=== PATIENT | male | born 1970 | race African-American/Black ===

== ENCOUNTER 2023-01-01 16:21 | Inpatient (IN) | payer MEDICAID ==
[~2023-01-01] VITALS: Ht 180.3 cm; Wt 98.0 kg
--- NOTE | 2023-01-01 18:08 | NUR ---
BIBA FOR LOWER EXTREMITY INJURY. A/O X 3, ABLE TO MAKE NEEDS KNOWN, TOLERATING WELL ON ROOM AIR.
[2023-01-01] MEDS ORDERED: VANCOMYCIN 1 GM in IV D5W 250 ML IV ONE (18:30)
--- NOTE | 2023-01-01 18:54 | NUR ---
BLOOD SAMPLES OBTAINED
--- NOTE | 2023-01-01 19:06 | NUR ---
HOLDING ANTIBIOTICS PENDING URINE SAMPLE FOR CULTURE
--- NOTE | 2023-01-01 19:10 | NUR ---
U/S TECH AT BEDSIDE
[2023-01-01 19:12] LABS: BASOPHILS # (AUTO) 0.2 K/uL (0.0-0.2); HEMATOCRIT 42 % (39-51); HEMOGLOBIN 13.9 g/dL (13.5-17.5); LYMPHOCYTES # (AUTO) 0.8 K/uL (0.8-4.8); LYMPHOCYTES % (AUTO) 4.7 % (20.0-44.0); MEAN CORPUSCULAR HGB CONC 33 g/dl (31.0-36.0); MEAN CORPUSCULAR VOLUME 88 fL (80-96); MONOCYTES # (AUTO) 0.7 K/uL (0.1-1.30); MONOCYTES % (AUTO) 3.9 % (2.0-12.0); NEUTROPHILS # (AUTO) 14.9 K/uL (1.8-8.9); NEUTROPHILS % (AUTO) 90.4 % (43.0-81.0); PLATELET COUNT (AUTO) 126 K/uL (150-450); RED BLOOD CELL COUNT(AUTO) 4.79 MIL/uL (4.5-6.0); WHITE BLOOD COUNT (AUTO) 16.6 K/uL (4.3-11.0)
[2023-01-01 19:29] LABS: ALANINE AMINOTRANSFERASE 61 U/L (12-78); ALKALINE PHOSPHATASE 70 U/L (46-116); ASPARTATE AMINOTRANSFERASE 80 U/L (15-37); CARBON DIOXIDE 29 mmol/L (21-32); CHLORIDE 98 mmol/L (98-107); CREATININE 1.5 mg/dL (0.6-1.3); GLUCOSE 95 mg/dL (74-106); POTASSIUM 3.4 mmol/L (3.5-5.1); SODIUM SERUM 134 mmol/L (136-145); TOTAL PROTEIN, SERUM 7.2 g/dL (6.4-8.2); UREA NITROGEN, BLOOD 17 mg/dL (7-18)
--- NOTE | 2023-01-01 19:43 | NUR ---
URINE CUP OFFERED; PATIENT AMBULATED TO RESTROOM
--- NOTE | 2023-01-01 19:44 | NUR ---
URINE COLLECTED AND SENT TO LAB
--- NOTE | 2023-01-01 19:51 | NUR ---
LACTIC 2.1, DR. MARIE NOTIFIED
--- NOTE | 2023-01-01 19:51 | NUR ---
[facility] PATIENT LACTIC ACID 2.1, RN MANPREET MADE AWARE
[2023-01-01 19:58] LABS: C-REACTIVE PROTEIN 38.9 mg/dL (0.0-0.9)
[2023-01-01] MEDS ORDERED: IV NS 0.9% 1,000 ML IV ONE (20:00)
--- NOTE | 2023-01-01 21:33 | NUR ---
EPIC PANEL PAGED
--- NOTE | 2023-01-01 21:41 | NUR ---
COVID SWAB COLLECTED AND SENT TO LAB
--- NOTE | 2023-01-01 23:05 | NUR ---
REPORT GIVEN TO YAN LANDERS FOR CRIS
--- NOTE | 2023-01-01 23:16 | NUR ---
PT TRANSPORT TO UNIT ON [facility] WITH EMT AT BEDSIDE. PT IS IN STABLE CONDITION FOR TRANSPORT
[2023-01-01] MEDS ORDERED: ACETAMINOPHEN 325 MG TABLET PO PRN (23:30)
[2023-01-01] MEDS ORDERED: ONDANSETRON HCL/PF 4 MG/2 ML VIAL IVP PRN (23:30)
[2023-01-01] MEDS ORDERED: VANCOMYCIN 500 MG in IV D5W 100ml IV ONE (23:30)
[2023-01-01 23:58] VITALS: BP 137/83
[2023-01-02] MEDS ORDERED: VANCOMYCIN 1 GM VIAL ONE (00:11)
[2023-01-02] MEDS: ENOXAPARIN SODIUM 40 MG/0.4 ML DISP.SYRIN SQ SCH ×2 (00:19→23:04)
--- NOTE | 2023-01-02 00:26 | NUR ---
RN NOTE PT A/O X4 ABLE TO MAKE NEEDS KNOWN. ON ROOM AIR TOLERATING WELL. NO RESPIRATORY DISTRESS REPORTED. NO USE OF ACCESSORY MUSCLES. PT NOTED WITH IV ACCESS ONT RAC 320G FLUSHING WELL. S/L. PT NOTED WITH BILATERAL LOWER EXTREMITY SWELLING AND REDNESS. NOTED WITH EDEMA ON THE LLE PITTING +2 AND NON PITTING EDEMA ON RLE. ALSO NOTED PT WITH BLE SCABS ON BOTH THIGHS. PHOTOS TAKE AND PLACE IN CHART WOUND CONSULT ORDERED. PT ORIENTED TO UNIT AND ROOM CALL LIGHT WITHIN REACH. TABLE WITHIN REACH. ALL NEEDS MET AT THIS TIME.
[2023-01-02 01:54] LABS: BILIRUBIN,DIRECT 0.3 mg/dL (0.0-0.2)
[2023-01-02 06:28] LABS: BASOPHILS % (AUTO) 0.4 % (0.0-2.0); EOSINOPHILS % (AUTO) 0.3 % (0.0-6.0); HEMATOCRIT 39 % (39-51); HEMOGLOBIN 12.5 g/dL (13.5-17.5); LYMPHOCYTES % (AUTO) 8.5 % (20.0-44.0); MEAN CORPUSCULAR HGB CONC 33 g/dl (31.0-36.0); MEAN CORPUSCULAR VOLUME 90 fL (80-96); MONOCYTES # (AUTO) 0.8 K/uL (0.1-1.30); MONOCYTES % (AUTO) 6.4 % (2.0-12.0); NEUTROPHILS # (AUTO) 10.4 K/uL (1.8-8.9); NEUTROPHILS % (AUTO) 84.4 % (43.0-81.0); PLATELET COUNT (AUTO) 113 K/uL (150-450); RED BLOOD CELL COUNT(AUTO) 4.28 MIL/uL (4.5-6.0); WHITE BLOOD COUNT (AUTO) 12.3 K/uL (4.3-11.0)
--- NOTE | 2023-01-02 06:42 | NUR ---
RN CLOSING NOTE PT A/O X4 ABLE TO MAKE NEEDS KNOWN. ON ROOM AIR TOLERATING WELL. NO RESPIRATORY DISTRESS REPORTED. NO USE OF ACCESSORY MUSCLES. PT NOTED WITH IV ACCESS ON RAC # 20G FLUSHING WELL. S/L. PT NOTED WITH BILATERAL LOWER EXTREMITY SWELLING AND REDNESS. NOTED WITH EDEMA ON THE LLE PITTING +2 AND NON PITTING EDEMA ON RLE. PT ORIENTED TO UNIT AND ROOM CALL LIGHT WITHIN REACH. TABLE WITHIN REACH. ALL NEEDS MET AT THIS TIME. WILL ENDORSE CARE TO DAY SHIFT NURSE.
[2023-01-02 06:54] LABS: CALCIUM, SERUM 8.4 mg/dL (8.5-10.1); CREATININE 1.3 mg/dL (0.6-1.3); MAGNESIUM 1.9 mg/dL (1.8-2.4); POTASSIUM 3.3 mmol/L (3.5-5.1)
[2023-01-02 08:00] VITALS: BP 120/78
[2023-01-02] MEDS ORDERED: POTASSIUM CHLORIDE 20 MEQ TAB.PRT.SR PO SCH (09:30)
--- NOTE | 2023-01-02 10:36 | NUR ---
RN OPENING NOTE I RECEIVED PT A/O X4 IN BED , ON RA, IN NO RESPIRATORY DISTRESS, NO LABORED BREATHING. PT IS ABLE TO MAKE NEEDS KNOWN. NO USE OF ACCESSORY MUSCLES. HEART AND LUNG AND ABDOMOINAL SOUNDS ARE NORMAL. IV ACCESS ON RAC # 20G FLUSHING WELL. PT NOTED WITH BILATERAL LOWER EXTREMITY SWELLING , REDNESS AND WARM LOWER LEGS. NOTED WITH + 3 EDEMA ON BLEs . SAFETY PRECAUTIONS ARE IN PLACE. CALL LIGHT WITHIN REACH. TABLE WITHIN REACH. BED LOCKED AND AT LOWEST POSITION, SIDE RAILS ARE UPX2 . i WILL PROVIDE HIGH STANDARD CARE TO PT DURING MY SHIFT AND MEET HIS NEEDS. Addendum: 01/02/23 at 1049 by WALTER CRESPO RN NOTE FOR 0730
--- NOTE | 2023-01-02 10:44 | NUR ---
WOUND CARE CONSULT: PT PRESENTS WITH VERY RED, SWOLLEN LOWER LEGS WITH CRUSTED WOUNDS, PRESENT ON ADMISSION. DR SAMAYOA CALLED FOR DPM CONSULT. IN AGREEMENT WITH PLAN OF CARE.
[2023-01-02] MEDS: VANCOMYCIN 1 GM in IV D5W 250 ML IV SCH ×2 (12:02→23:03)
[2023-01-02] MEDS ORDERED: K PHOS NEUTRAL 250 MG TABLET PO ONE (15:30)
[2023-01-02 16:00] VITALS: BP 131/69
--- NOTE | 2023-01-02 18:30 | NUR ---
RN CLOSING NOTE- PT UNCHANGED, CONTINUES ON ANTIBIOTIC THERAPY, PT A/O X4 IN BED, HEART AND LUNG AND ABDOMINAL SOUNDS ARE NORMAL. IV ACCESS ON RAC # 20G FLUSHING WELL. PT NOTED WITH BILATERAL LOWER EXTREMITY SWELLING , REDNESS AND WARM LOWER LEGS. NOTED WITH + 3 EDEMA ON BLEs . SAFETY PRECAUTIONS ARE IN PLACE. CALL LIGHT WITHIN REACH. TABLE WITHIN REACH. BED LOCKED AND AT LOWEST POSITION, SIDE RAILS ARE UPX2 . MONITOR / ASSIST
--- NOTE | 2023-01-02 19:30 | NUR ---
MS RN OPENING NOTE PATIENT SLEEPING IN BED, EASILY AWAKENED, PT ABLE TO MAKE NEEDS KNOWN. PATIENT STABLE ON RA, NO S/S OF DISTRESS OR SOB NOTED, BREATHING EVEN AND UNLABORED. NO C/O PAIN AT THIS TIME. IV ACCESS ON RAC #20G INTACT AND SALINE LOCKED. SAFETY MEASURES IN PLACE: CALL LIGHT WITHIN REACH, SIDE RAILS UP X 2, BED LOCKED IN LOWEST POSITION, HOB ELEVATED, BED ALARM ON. WILL CONTINUE TO MONITOR PATIENT
[2023-01-02 20:00] VITALS: BP 128/70
--- NOTE | 2023-01-03 06:31 | NUR ---
MS RN CLOSING NOTE PATIENT SLEEPING IN BED, EASILY AWAKENED, PT ABLE TO MAKE NEEDS KNOWN. PATIENT STABLE ON RA, NO S/S OF DISTRESS OR SOB NOTED, BREATHING EVEN AND UNLABORED. NO C/O PAIN AT THIS TIME. IV ACCESS ON RAC #20G INTACT AND SALINE LOCKED. NO SIGNIFICANT CHANGES THIS SHIFT, PATIENT SLEPT WELL THROUGH THE NIGHT, MEDICATIONS GIVEN ORDERED, PT NEEDS MET THROUGHOUT SHIFT. SAFETY MEASURES IN PLACE: CALL LIGHT WITHIN REACH, SIDE RAILS UP X 2, BED LOCKED IN LOWEST POSITION, HOB ELEVATED, BED ALARM ON. WILL ENDORSE TO DAYSHIFT RN FOR CONTINUITY OF CARE
[2023-01-03 07:19] LABS: CALCIUM, SERUM 8.8 mg/dL (8.5-10.1); CREATININE 1.2 mg/dL (0.6-1.3); POTASSIUM 3.4 mmol/L (3.5-5.1)
[2023-01-03 07:20] LABS: ALBUMIN 2.2 g/dL (3.4-5.0); BILIRUBIN,TOTAL 0.6 mg/dL (0.2-1.0); MAGNESIUM 2.1 mg/dL (1.8-2.4); PHOSPHORUS 3.2 mg/dL (2.5-4.9); TOTAL PROTEIN, SERUM 5.9 g/dL (6.4-8.2)
--- NOTE | 2023-01-03 07:20 | NUR ---
RN OPENING NOTE I RECEIVED PT A/O X 4 AWAKE IN THE BED WITH NO PAIN AT THIS TIME. VITAL SIGNS ARE NORMAL. HEART AND LUNG SOUNDS ARE NORMAL. BOWEL SOUNDS ARE NORMAL. PT ABLE TO MAKE NEEDS KNOWN. PATIENT STABLE ON RA, NO S/S OF DISTRESS OR SOB NOTED, BREATHING EVEN AND UNLABORED. IV ACCESS ON RA. IV ACCESS #20G INTACT . SAFETY MEASURES IN PLACE: CALL LIGHT WITHIN REACH, SIDE RAILS UP X 2, BED LOCKED IN LOWEST POSITION, HOB ELEVATED, BED ALARM ON. I ROUGHT TOOTH BRUSH AND TOOTH PASTE FOR THE PATIENT.
[2023-01-03 07:27] LABS: BASOPHILS % (AUTO) 0.2 % (0.0-2.0); EOSINOPHILS % (AUTO) 0.2 % (0.0-6.0); HEMATOCRIT 37 % (39-51); HEMOGLOBIN 12.2 g/dL (13.5-17.5); LYMPHOCYTES # (AUTO) 1.1 K/uL (0.8-4.8); LYMPHOCYTES % (AUTO) 10.4 % (20.0-44.0); MEAN CORPUSCULAR HGB CONC 33 g/dl (31.0-36.0); MEAN CORPUSCULAR VOLUME 88 fL (80-96); MONOCYTES # (AUTO) 1.3 K/uL (0.1-1.30); MONOCYTES % (AUTO) 12.1 % (2.0-12.0); NEUTROPHILS # (AUTO) 8.4 K/uL (1.8-8.9); NEUTROPHILS % (AUTO) 77.1 % (43.0-81.0); PLATELET COUNT (AUTO) 126 K/uL (150-450); RED BLOOD CELL COUNT(AUTO) 4.16 MIL/uL (4.5-6.0); WHITE BLOOD COUNT (AUTO) 10.9 K/uL (4.3-11.0)
[2023-01-03 08:12] VITALS: BP 121/67
[2023-01-03] MEDS: MUPIROCIN OINT 2% 22 GM TUBE TP SCH ×2 (10:11→20:47)
[2023-01-03] MEDS: VANCOMYCIN 1 GM in IV D5W 250 ML IV SCH (12:31)
[2023-01-03] MEDS: FUROSEMIDE 40 MG/4 ML VIAL IV SCH ×2 (14:39→16:48)
[2023-01-03 16:24] VITALS: BP 140/75
--- NOTE | 2023-01-03 18:37 | NUR ---
RN CLOSING NOTE PT IS A/O X 4, AWAKE IN BED, NO PAIN AT THIS TIME. NORMAL VITAL SIGNS . NO BOWEL MOVEMENT YET. PT IS STABLE ON RA AND IN NO DISTRESS. BOTH LEGS ARE RED, SWOLLEN AND WARM WITH +3 PITTING EDEMA. WE PUT BACTROBAN ANTIBIOTIC OINTMENT ON HIS SCABS ON BOTH LEGS AND COVERED THEM WITH DRESSINGS. ORDERED LASIX AND I ADMINISTERED THE MED TWICE IN MY SHIFT. I ALSO ADMINISTERED VANCOMYCIN AT 1230. PT CAN MAKE NEEDS KNOWN. BREATHING EASILY AND UNLABORED. IV ACCESS ON R AC # 20 G ( INTACT AND PATENT ). SAFETY MEASURES IN PLACE: CALL LIGHT WITHIN REACH, SIDE RAILS UP X 2, BED LOCKED IN LOWEST POSITION, HOB ELEVATED, BED ALARM ON. I WILL ENDORSE PT TO NEXT SHIFT NURSE TO PROVIDE CRIS.
--- NOTE | 2023-01-03 19:00 | NUR ---
MS RN OPENING NOTE RECEIVED PATIENT IN BED AWAKE A/O X4. ABLE TO MAKE NEEDS KNOWN. IV ACCESS ON RIGHT FOREARM #22 SALINE LOCK. NO PAIN AT THIS TIME. ON ROOM AIR TOLERATING WELL. BREATHING EVENLY AND UNLABORED. NO COMPLAINS OF PAIN AT THIS TIME. ASSESSED BILATERAL LEGS NOTED TO BE RED, WARM, SWOLLEN WITH PITTING EDEMA +3. SAFETY MEASURE IN PLACED: BED LOCK AND IN LOWEST POSITION, HOB ELEVATED, BEDSIDE TABLE AND CALL LIGHT WITHIN PATIENT REACH.
[2023-01-03 20:00] VITALS: BP 126/65
[2023-01-03] MEDS: VANCOMYCIN 1 GM in IV D5W 250ml IV SCH (20:05)
[2023-01-03] MEDS ORDERED: MAGNESIUM HYDROXIDE 30 ML UDC PO PRN (21:00)
--- NOTE | 2023-01-03 21:00 | NUR ---
RN NOTE PATIENT CLAIM TO HAVE NO BOWEL MOVEMENT SINCE YESTERDAY AND IS NOT FEELING COMFORTABLE ABOUT IT. ROMANA BHATTI MADE AWARE. NEW ORDER RECEIVED AND CARRIED OUT.
--- NOTE | 2023-01-03 22:24 | NUR ---
RN NOTE IV ACCESS REINSERTED ON RIGHT FOREARM #22 NOTED TO BE PATENT AND INTACT.
[2023-01-03] MEDS: ENOXAPARIN SODIUM 40 MG/0.4 ML DISP.SYRIN SQ SCH (23:01)
[2023-01-04] MEDS ORDERED: VANCOMYCIN 1 GM in IV D5W 250ml IV SCH ×4
[2023-01-04] MEDS: VANCOMYCIN 1 GM in IV D5W 250ml IV SCH ×3 (04:37→20:10)
--- NOTE | 2023-01-04 06:56 | NUR ---
MS RN CLOSING NOTE PATIENT IN BED AWAKE A/O X4. ABLE TO MAKE NEEDS KNOWN. IV ACCESS ON RIGHT FOREARM #22 SALINE LOCK. NO PAIN AT THIS TIME. ON ROOM AIR TOLERATING WELL. BREATHING EVENLY AND UNLABORED. NO COMPLAINS OF PAIN AT THIS TIME. ASSESSED BILATERAL LEGS NOTED TO BE RED, WARM, SWOLLEN WITH PITTING EDEMA +3. ALL DUE MEDICATION IS GIVEN. ALL NEEDS ARE MET. MADE SURE PATIENT IS KEPT CLEAN AND COMFORTABLE. SAFETY MEASURE IN PLACED: BED LOCK AND IN LOWEST POSITION, HOB ELEVATED, BEDSIDE TABLE AND CALL LIGHT WITHIN PATIENT REACH. WILL ENDORSE TO NEXT SHIFT NURSE FOR CONTINUITY OF CARE.
[2023-01-04 07:04] LABS: CALCIUM, SERUM 8.8 mg/dL (8.5-10.1); CREATININE 1.2 mg/dL (0.6-1.3); POTASSIUM 3.1 mmol/L (3.5-5.1)
--- NOTE | 2023-01-04 07:35 | NUR ---
MS RN OPENING NOTE PATIENT IN BED AWAKE A/O X4. ABLE TO MAKE NEEDS KNOWN. IV ACCESS ON RIGHT FOREARM #22 SALINE LOCK. NO PAIN AT THIS TIME. ON ROOM AIR TOLERATING WELL. BREATHING EVENLY AND UNLABORED. NO COMPLAINS OF PAIN AT THIS TIME. ASSESSED BILATERAL LEGS NOTED TO BE RED, WARM, SWOLLEN WITH PITTING EDEMA +3. SAFETY MEASURE IN PLACED: BED LOCK AND IN LOWEST POSITION, HOB ELEVATED, BEDSIDE TABLE AND CALL LIGHT WITHIN PATIENT REACH. WILL CONTINUE TO MONITOR.
[2023-01-04 08:17] VITALS: BP 125/81
[2023-01-04] MEDS: FUROSEMIDE 40 MG/4 ML VIAL IV SCH ×2 (08:33→16:15)
[2023-01-04] MEDS: MUPIROCIN OINT 2% 22 GM TUBE TP SCH ×2 (08:39→20:19)
[2023-01-04] MEDS ORDERED: POTASSIUM CHLORIDE 20 MEQ TAB.PRT.SR PO ONE (11:00)
[2023-01-04 16:12] VITALS: BP 124/74
--- NOTE | 2023-01-04 18:17 | NUR ---
MS RN CLOSING NOTES: PATIENT IN BED AWAKE A/O X4. ABLE TO MAKE NEEDS KNOWN. IV ACCESS ON RIGHT FOREARM #22 SALINE LOCK. NO PAIN AT THIS TIME. ON ROOM AIR TOLERATING WELL. BREATHING EVENLY AND UNLABORED. NO COMPLAINS OF PAIN AT THIS TIME. ASSESSED BILATERAL LEGS NOTED TO BE RED, WARM, SWOLLEN WITH PITTING EDEMA +3, WOUND CARE RENDERED. SAFETY MEASURE IN PLACED: BED LOCK AND IN LOWEST POSITION, HOB ELEVATED, BEDSIDE TABLE AND CALL LIGHT WITHIN PATIENT REACH. WILL ENDORSED TO NEXT NURSE
[2023-01-04 20:00] VITALS: BP 110/68
[2023-01-05] MEDS: ENOXAPARIN SODIUM 40 MG/0.4 ML DISP.SYRIN SQ SCH ×2 (00:08→23:00)
[2023-01-05] MEDS: VANCOMYCIN 1 GM in IV D5W 250ml IV SCH ×3 (04:43→19:54)
[2023-01-05 06:26] LABS: CALCIUM, SERUM 9.2 mg/dL (8.5-10.1); POTASSIUM 3.9 mmol/L (3.5-5.1)
--- NOTE | 2023-01-05 06:50 | NUR ---
MS RN CLOSING NOTE PATIENT IN BED; AWAKE, A/O X 4. STABLE ON ROOM AIR. IN NO ACUTE DISTRESS. DENIES ANY PAIN OR DISCOMFORT AT THIS TIME. WITH IV ACCESS ON RFA 22g: PATENT, INTACT AND SALINE LOCKED. ALL NEEDS ATTENDED. ALL DUE MEDS GIVEN ORDERED. SAFETY PRECAUTIONS MAINTAINED: CALL LIGHT AND TABLE WITHIN REACH, SIDE RAILS UP X 2, BED IN LOWEST LOCKED POSITION. ENDORSED TO MORNING SHIFT FOR CRIS.
--- NOTE | 2023-01-05 07:32 | NUR ---
MS RN OPENING NOTE PATIENT IN BED AWAKE A/O X4. ABLE TO MAKE NEEDS KNOWN. NO SOB OR DISTRESS NOTED AT THIS TIME , IV ACCESS ON RIGHT FOREARM #22 SALINE LOCK.. ON ROOM AIR TOLERATING WELL. . NO COMPLAINS OF PAIN AT THIS TIME. ASSESSED BILATERAL LEGS NOTED TO BE RED, WARM, SWOLLEN WITH PITTING EDEMA +3. SAFETY MEASURE IN PLACED: BED LOCK AND IN LOWEST POSITION, HOB ELEVATED, BEDSIDE TABLE AND CALL LIGHT WITHIN PATIENT REACH. WILL CONTINUE TO MONITOR.
[2023-01-05 08:00] VITALS: BP 113/65
[2023-01-05] MEDS: FUROSEMIDE 40 MG/4 ML VIAL IV SCH ×2 (09:09→16:13)
[2023-01-05] MEDS: MUPIROCIN OINT 2% 22 GM TUBE TP SCH ×2 (10:08→19:55)
[2023-01-05 16:00] VITALS: BP 125/67
--- NOTE | 2023-01-05 19:37 | NUR ---
MS RN CLOSING NOTE PATIENT IN BED AWAKE A/O X4. ABLE TO MAKE NEEDS KNOWN. NO SOB OR DISTRESS NOTED AT THIS TIME , IV ACCESS ON LEFT FOREARM #20 SALINE LOCK.. ON ROOM AIR TOLERATING WELL. NO COMPLAINS OF PAIN AT THIS TIME. ASSESSED BILATERAL LEGS NOTED TO BE RED, WARM, SWOLLEN WITH PITTING EDEMA +3-4 . ALL DUE MEDS GIVEN ORDERED , SAFETY MEASURE IN PLACED: BED LOCK AND IN LOWEST POSITION, HOB ELEVATED, BEDSIDE TABLE AND CALL LIGHT WITHIN PATIENT REACH. ENDORSED TO NEXT SHIFT
[2023-01-06] MEDS: VANCOMYCIN 1 GM in IV D5W 250ml IV SCH ×3 (03:30→12:40)
--- NOTE | 2023-01-06 06:35 | NUR ---
RN CLOSING NOTE PT IS AWAKE & RESTING COMFORTABLY IN BED. PT IS A/OX4, RESPONSIVE AND FOLLOWS VERBAL COMMAND. PT IS IN RA W/ NO S & SX OF RESPIRATORY DISTRESS @ THIS TIME. PT IV PRESENT ON LEFT FOREARM, PATENT, INTACT AND FLUSHES WELL, W/ NO S &SX OF INFILTRATION @ SITE NOTED. PT WALKER & URINAL @ BEDSIDE WITH URINE OUTPUT OF 600cc. PT IS KEPT CLEAN, DRY AND COMFORTABLE. ADMINISTERED MEDICATION ACCORDINGLY PER MD'S ORDER. SAFETY MEASURE IN PLACE. BED IN LOWEST AND LOCKED POSITION. SIDE RAILS X 2. BEDSIDE TABLE AND CALL LIGHT IS EASY REACH. BED ALARM IS ON. WILL ENDORSE PT TO THE NEXT SHIFT FOR CRIS.
[2023-01-06 06:40] LABS: CALCIUM, SERUM 9.1 mg/dL (8.5-10.1); CREATININE 1.1 mg/dL (0.6-1.3); POTASSIUM 3.7 mmol/L (3.5-5.1)
[2023-01-06 07:00] VITALS: BP 119/73
--- NOTE | 2023-01-06 07:53 | NUR ---
MS RN OPENING NOTE PATIENT IN BED AWAKE A/O X4. ABLE TO MAKE NEEDS KNOWN. NO SOB OR DISTRESS NOTED AT THIS TIME , IV ACCESS ON LEFT FOREARM G#20 SL . ON ROOM AIR TOLERATING WELL. . NO COMPLAINS OF PAIN AT THIS TIME. ASSESSED BILATERAL LEGS NOTED TO BE RED, WARM, SWOLLEN WITH PITTING EDEMA +3. SAFETY MEASURE IN PLACED: BED LOCK AND IN LOWEST POSITION, HOB ELEVATED, BEDSIDE TABLE AND CALL LIGHT WITHIN PATIENT REACH. WILL CONTINUE TO MONITOR.
[2023-01-06] MEDS: FUROSEMIDE 40 MG/4 ML VIAL IV SCH (08:22)
[2023-01-06] MEDS: MUPIROCIN OINT 2% 22 GM TUBE TP SCH (08:23)
--- NOTE | 2023-01-06 12:36 | NUR ---
YAN NOTES VANCOMYCIN IV NOT GIVEN YET STILL WAITING FOR THE VANCO TROUGH SCHEDULE TODAY @1200 Addendum: 01/06/23 at 1239 by KARI LAZO RN DISREGARD THIS NOTES - WRONG PATIENT
--- NOTE | 2023-01-06 17:12 | NUR ---
SIGHTSEEING GUIDE NOTES PATIENT WAS SEEN BY MD AND WITH ORDER FOR DISCHARGE AND PATIENT MADE AWARE , ALL DISCHARGE PARERS WERE PREPARED AND DISCHARGE INSTRUCTIONS PROVIDED REGARDING WOUND TX , ANTIBIOTIC BY MOUTH ORDERED, FOLLOW UP WITH PCP, MONITOR FOE WORSENING INFECTION , AND CALL 911 IN CASE OF EMERGENCY , ALL BELONGINGS WERE TAKEN AND FORM WAS SIGNED , ALERT AND ORIENTED AND ABLE TO MAKE NEEDS KNOWN , PATIENT LEFT THE FACILITY VIA PRIVATE CAR , NO C/O OF PAIN AND DISCOMFORT ,SKIN ASSESSMENT DONE AND PHOTOS TAKEN AND PROVIDED WITH CRUTHCES AND ABLE OT MANAGE WALKING USING CRUTCHES , ASSISTED TO THE LOBBY USING WHEEL CHAIR WITH CORROSION CONTROL ENGINEER , LEFT IN A STABLE CONDITION
== END 2023-01-06 16:50 | disposition home or self-care (01) | DRG 720 ==
LOC: ER 16:27 → MED 23:03
PROVIDERS: ADMIT Nurse Practitioner Acute Care
DX: A41.9 Sepsis, unspecified organism (principal); N17.0 Acute kidney failure with tubular necrosis; E44.0 Moderate protein-calorie malnutrition; D68.59 Other primary thrombophilia; E88.09 Other disorders of plasma-protein metabolism, not elsewhere classified; S81.811A Laceration without foreign body, right lower leg, initial encounter; S81.812A Laceration without foreign body, left lower leg, initial encounter; R65.20 Severe sepsis without septic shock; W45.8XXA Other foreign body or object entering through skin, initial encounter; L03.115 Cellulitis of right lower limb; L03.116 Cellulitis of left lower limb; E66.9 Obesity, unspecified; E87.6 Hypokalemia; I73.9 Peripheral vascular disease, unspecified; Y93.9 Activity, unspecified; Y92.9 Unspecified place or not applicable; Y99.9 Unspecified external cause status
CPT/HCPCS: 36415; 80048-TC; 80053-TC; 80061-TC; 80202-TC; 82248-TC; 83605-TC; 83735-TC; 84100-TC; 85025-TC; 85652-TC; 86140-TC; 87040-TC; 87081-TC; 93307-TC; 93970-TC; A4223; A6253; A6403; C9803; G0378; J1650; J1940; J3370; J7030; J7060